=== PATIENT | male | born 1965 | race African-American/Black ===

== ENCOUNTER 2022-01-13 19:35 | Inpatient (IN) | payer SELFPAY ==
[2022-01-13] MEDS ORDERED: SODIUM CHLORIDE 0.9% 500 ML INFUS.BAG IV ONE ×2 (20:40→22:19)
[2022-01-13] MEDS ORDERED: ONDANSETRON 4 MG/2 ML VIAL ONE (20:45)
[2022-01-13] MEDS ORDERED: ACETAMINOPHEN 1000 MG/100 ML BAG IVPB ONE (20:46)
[2022-01-13] MEDS ORDERED: ONDANSETRON 4 MG/2 ML VIAL IVPUSH ONE (21:03)
[2022-01-13 21:43] LABS: HEMATOCRIT 27.6 % (35.4-49); HEMOGLOBIN 8.6 GM/dL (11.7-16.9); MCH 26.3 pg (25.7-33.7); MCHC 31.2 g/dl (32.0-35.9); MEAN CELL VOLUME 84.1 fl (80-96); MEAN PLT VOLUME 7.5 fl (7.5-11.1); PLATELET COUNT 493 10^3/uL (134-434); RBC 3.28 M/mm3 (4.00-5.60); RDW 19.4 % (11.9-15.9); VENOUS BASE EXCESS -11.4 mmol/L (-2-2); VENOUS O2 SATURATION 15.8 % (70-80); VENOUS PCO2 43.7 mmHg (38-52); WHITE BLOOD COUNT 20.6 K/mm3 (4.0-10.0)
[2022-01-13 21:44] LABS: VENOUS PH 7.19 (7.310-7.410)
[2022-01-13 21:50] LABS: INR 1.18 (0.83-1.09); PROTHROMBIN TIME (PATIENT) 13.6 SEC (9.7-13.0)
[2022-01-13 21:53] LABS: ACTIVATED PTT 26.3 SECONDS (25.2-36.5)
[2022-01-13 22:03] LABS: ALBUMIN 2.2 g/dl (3.4-5.0); BLOOD UREA NITROGEN 35.2 mg/dL (7-18); CALCIUM 9.5 mg/dL (8.5-10.1); MAGNESIUM 2.4 mg/dL (1.8-2.4)
[2022-01-13 22:06] LABS: CREATININE 3.3 mg/dL (0.55-1.3); PHOSPHOROUS 4.5 mg/dL (2.5-4.9)
[2022-01-13 22:09] LABS: TOT PROT 9.4 g/dl (6.4-8.2)
[2022-01-13 22:19] LABS: BILIRUBIN,TOTAL 0.2 mg/dL (0.2-1)
[2022-01-13 22:36] LABS: ANISOCYTOSIS 1+; MACROCYTOSIS 1+; PLATELET ESTIMATE INCREASED
[2022-01-14] MEDS ORDERED: PIPERACILLIN/TAZOB 4.5 GM 4.5 GM in DEXTROSE 5%-WATER 100 ML IVPB ONE (00:42)
[2022-01-14] MEDS ORDERED: VANCOMYCIN 1 GM in D5W (PRE-DOCKED) 1,000 MG/250 ML IVPB ONE (00:43)
[2022-01-14] MEDS ORDERED: PIPERACILLIN/TAZOB 4.5 GM 4.5 GM/100 ML BAG IVPB ONE (01:47)
[2022-01-14] MEDS ORDERED: VANCOMYCIN/WATER FOR INJ (PEG) 1,000 MG/200 ML BAG IVPB ONE (01:48)
[2022-01-14] MEDS: VANCOMYCIN 250 MG/5 ML ORAL SOLUTION PO SCH ×3 (06:42→18:46)
[2022-01-14] MEDS: HEPARIN NA (PORCINE) 5,000 UNITS/ML 1ML VIAL SQ SCH ×3 (06:42→21:35)
[2022-01-14] MEDS: SODIUM CHLORIDE 1,000 ML IV SCH (06:42)
[2022-01-14] MEDS ORDERED: SODIUM CHLORIDE 1,000 ML IV STA (08:47)
[2022-01-14] MEDS: PIPERACILLIN/TAZOB 2.25 GM 2.25 GM in DEXTROSE 5%-WATER - 50 ML IVPB SCH ×3 (10:15→21:35)
[2022-01-14 12:09] LABS: HEMATOCRIT 23.6 % (35.4-49); HEMOGLOBIN 7.5 GM/dL (11.7-16.9); MCH 26.5 pg (25.7-33.7); MCHC 31.7 g/dl (32.0-35.9); MEAN CELL VOLUME 83.7 fl (80-96); MEAN PLT VOLUME 7.5 fl (7.5-11.1); PLATELET COUNT 419 10^3/uL (134-434); RBC 2.82 M/mm3 (4.00-5.60); RDW 19.2 % (11.9-15.9); WHITE BLOOD COUNT 20.4 K/mm3 (4.0-10.0)
[2022-01-14 12:49] LABS: ALBUMIN 1.8 g/dl (3.4-5.0); CALCIUM 8.4 mg/dL (8.5-10.1); MAGNESIUM 2.2 mg/dL (1.8-2.4)
[2022-01-14 12:51] LABS: BLOOD UREA NITROGEN 33.2 mg/dL (7-18)
[2022-01-14 12:52] LABS: CREATININE 3.3 mg/dL (0.55-1.3); PHOSPHOROUS 4.3 mg/dL (2.5-4.9)
[2022-01-14 12:54] LABS: BILIRUBIN,TOTAL 0.4 mg/dL (0.2-1); TOT PROT 7.5 g/dl (6.4-8.2)
[2022-01-14 13:29] LABS: ANISOCYTOSIS 0; MACROCYTOSIS 0
[2022-01-14 17:12] LABS: BLOOD UREA NITROGEN 35.2 mg/dL (7-18); CALCIUM 8.3 mg/dL (8.5-10.1)
[2022-01-14 17:15] LABS: CREATININE 3.4 mg/dL (0.55-1.3)
[2022-01-14 19:47] LABS: BLOOD UREA NITROGEN 36.2 mg/dL (7-18); CALCIUM 8.1 mg/dL (8.5-10.1)
[2022-01-14 19:51] LABS: CREATININE 3.5 mg/dL (0.55-1.3)
[2022-01-15] MEDS: PIPERACILLIN/TAZOB 2.25 GM 2.25 GM in DEXTROSE 5%-WATER - 50 ML IVPB SCH ×3 (02:45→19:20)
[2022-01-15] MEDS: VANCOMYCIN 250 MG/5 ML ORAL SOLUTION PO SCH ×2 (03:22→06:09)
[2022-01-15] MEDS ORDERED: VANCOMYCIN 1,000 MG in DEXTROSE 5%-WATER - 250 ML IVPB SCH (06:00)
[2022-01-15] MEDS: HEPARIN NA (PORCINE) 5,000 UNITS/ML 1ML VIAL SQ SCH ×3 (06:08→21:26)
[2022-01-15] MEDS: SODIUM CHLORIDE 1,000 ML IV SCH (06:08)
[2022-01-15 07:58] LABS: BASO % 0.3 % (0-2.0); EOS % 0.4 % (0-4.5); HEMATOCRIT 22.7 % (35.4-49); HEMOGLOBIN 7.2 GM/dL (11.7-16.9); LYMPH % 5.9 % (8-40); MCH 26.4 pg (25.7-33.7); MCHC 31.6 g/dl (32.0-35.9); MEAN CELL VOLUME 83.6 fl (80-96); MEAN PLT VOLUME 7.5 fl (7.5-11.1); MONO % 4.7 % (3.8-10.2); NEUT % 88.7 % (42.8-82.8); PLATELET COUNT 433 10^3/uL (134-434); RBC 2.71 M/mm3 (4.00-5.60); RDW 18.6 % (11.9-15.9); WHITE BLOOD COUNT 19.1 K/mm3 (4.0-10.0)
[2022-01-15 08:25] LABS: CALCIUM 8.2 mg/dL (8.5-10.1)
[2022-01-15 08:26] LABS: ALBUMIN 1.5 g/dl (3.4-5.0); BLOOD UREA NITROGEN 37.8 mg/dL (7-18); MAGNESIUM 2.1 mg/dL (1.8-2.4)
[2022-01-15 08:29] LABS: CREATININE 3.4 mg/dL (0.55-1.3); PHOSPHOROUS 3.7 mg/dL (2.5-4.9)
[2022-01-15 08:31] LABS: BILIRUBIN,TOTAL 0.6 mg/dL (0.2-1); TOT PROT 6.8 g/dl (6.4-8.2)
[2022-01-15] MEDS ORDERED: VANCOMYCIN 1 GM in D5W (PRE-DOCKED) 1,000 MG/250 ML IVPB SCH (10:00)
[2022-01-15] MEDS ORDERED: PIPERACILLIN/TAZOB 3.375 GM 3.375 GM in DEXTROSE 5%-WATER - 50 ML IVPB SCH (18:00)
[2022-01-15 22:12] LABS: EPI CELLS 24 /uL (0-25.1); HYALINE CASTS 10 /uL (0-3.1); PH,URINE 5.5 (5.0-8.0); URINE APPEARANCE CLOUDY; URINE BACTERIA 23 /uL (0-1359); URINE BILIRUBIN NEGATIVE (NEGATIVE); URINE COLOR YELLOW; URINE GLUCOSE (UA) NEGATIVE (NEGATIVE); URINE KETONE NEGATIVE (NEGATIVE); URINE LEUK ESTERASE NEGATIVE (NEGATIVE); URINE NITRITE NEGATIVE (NEGATIVE); URINE PROTEIN 1+ (NEGATIVE); URINE RBC 17 /uL (0-23.9); URINE UROBILINOGEN 0.2 mg/dL (0.2-1.0); URINE WBC 32 /uL (0-25.8)
[2022-01-15 22:30] LABS: YEAST PRESENT (NEGATIVE)
[2022-01-16] MEDS: PIPERACILLIN/TAZOB 2.25 GM 2.25 GM in DEXTROSE 5%-WATER - 50 ML IVPB SCH ×4 (01:04→17:58)
[2022-01-16] MEDS: HEPARIN NA (PORCINE) 5,000 UNITS/ML 1ML VIAL SQ SCH ×3 (05:15→21:56)
[2022-01-16] MEDS: SODIUM CHLORIDE 1,000 ML IV SCH (05:27)
[2022-01-16 08:56] LABS: CALCIUM 8.5 mg/dL (8.5-10.1)
[2022-01-16 08:57] LABS: ALBUMIN 1.5 g/dl (3.4-5.0); BLOOD UREA NITROGEN 37.6 mg/dL (7-18)
[2022-01-16 09:03] LABS: BILIRUBIN,TOTAL 0.2 mg/dL (0.2-1)
[2022-01-16] MEDS: MULTIVIT-MINERALS ORAL LIQUID PO SCH (09:30)
[2022-01-16 11:50] LABS: HIV INTERPRETATION NEGATIVE (NEGATIVE)
[2022-01-16 13:32] LABS: HEMATOCRIT 24.2 % (35.4-49); HEMOGLOBIN 7.6 GM/dL (11.7-16.9); MCH 26.4 pg (25.7-33.7); MCHC 31.5 g/dl (32.0-35.9); MEAN CELL VOLUME 83.9 fl (80-96); MEAN PLT VOLUME 7.3 fl (7.5-11.1); PLATELET COUNT 482 10^3/uL (134-434); RBC 2.89 M/mm3 (4.00-5.60); RDW 19.4 % (11.9-15.9); WHITE BLOOD COUNT 20.1 K/mm3 (4.0-10.0)
[2022-01-16 13:54] LABS: CALCIUM 8.5 mg/dL (8.5-10.1)
[2022-01-16 13:55] LABS: ALBUMIN 1.5 g/dl (3.4-5.0); BLOOD UREA NITROGEN 39.8 mg/dL (7-18)
[2022-01-16 13:58] LABS: CREATININE 2.8 mg/dL (0.55-1.3)
[2022-01-16 13:59] LABS: TOT PROT 7.2 g/dl (6.4-8.2)
[2022-01-16 14:00] LABS: BILIRUBIN,TOTAL 0.3 mg/dL (0.2-1)
[2022-01-16 14:16] LABS: ANISOCYTOSIS 1+; MACROCYTOSIS 1+; TEAR DROP CELLS 1+; TOXIC GRANULATION 2+
[2022-01-16] MEDS ORDERED: SODIUM BICARBONATE 8.4% 50 MEQ/50 ML DISP.SYRIN IVPUSH ONE (17:22)
[2022-01-16] MEDS: SODIUM BICARBONATE 650 MG TABLET PO SCH ×2 (17:58→21:52)
[2022-01-17] MEDS ORDERED: PIPERACILLIN/TAZOBACTAM 2.25 GM VIAL IVPB ONE (00:22)
[2022-01-17] MEDS: PIPERACILLIN/TAZOB 2.25 GM 2.25 GM in DEXTROSE 5%-WATER - 50 ML IVPB SCH ×3 (01:10→17:56)
[2022-01-17] MEDS: SODIUM CHLORIDE 1,000 ML IV SCH (06:37)
[2022-01-17] MEDS: SODIUM BICARBONATE 650 MG TABLET PO SCH ×3 (06:38→21:46)
[2022-01-17] MEDS: HEPARIN NA (PORCINE) 5,000 UNITS/ML 1ML VIAL SQ SCH ×2 (06:38→14:45)
[2022-01-17] MEDS: MULTIVIT-MINERALS ORAL LIQUID PO SCH (09:52)
[2022-01-17] MEDS: LACTATED RINGERS SOLUTION 1,000 ML/1,000 ML INFUS.BAG IV SCH (10:50)
[2022-01-18] MEDS: HEPARIN NA (PORCINE) 5,000 UNITS/ML 1ML VIAL SQ SCH ×4 (01:15→21:03)
[2022-01-18] MEDS: PIPERACILLIN/TAZOB 2.25 GM 2.25 GM in DEXTROSE 5%-WATER - 50 ML IVPB SCH ×3 (03:25→18:00)
[2022-01-18] MEDS: SODIUM BICARBONATE 650 MG TABLET PO SCH ×3 (05:36→21:02)
[2022-01-18 06:57] LABS: VENOUS BASE EXCESS -9.8 mmol/L (-2-2); VENOUS O2 SATURATION 91.9 % (70-80); VENOUS PCO2 29.9 mmHg (38-52); VENOUS PH 7.323 (7.310-7.410)
[2022-01-18 07:03] LABS: BASO % 0.4 % (0-2.0); EOS % 0.3 % (0-4.5); HEMOGLOBIN 7.2 GM/dL (11.7-16.9); LYMPH % 6.8 % (8-40); MCH 26.9 pg (25.7-33.7); MCHC 32.9 g/dl (32.0-35.9); MEAN CELL VOLUME 81.7 fl (80-96); MEAN PLT VOLUME 6.7 fl (7.5-11.1); MONO % 5.2 % (3.8-10.2); NEUT % 87.3 % (42.8-82.8); PLATELET COUNT 490 10^3/uL (134-434); RBC 2.69 M/mm3 (4.00-5.60); RDW 18.7 % (11.9-15.9); WHITE BLOOD COUNT 17.4 K/mm3 (4.0-10.0)
[2022-01-18 07:26] LABS: CALCIUM 7.9 mg/dL (8.5-10.1); MAGNESIUM 1.3 mg/dL (1.8-2.4)
[2022-01-18 07:29] LABS: CREATININE 1.6 mg/dL (0.55-1.3); PHOSPHOROUS 4.8 mg/dL (2.5-4.9)
[2022-01-18] MEDS ORDERED: MAGNESIUM SULF 50% (8.12 MEQ/2 ML-1 GM VIAL) IVPB ONE (09:10)
[2022-01-18] MEDS: MULTIVIT-MINERALS ORAL LIQUID PO SCH (11:40)
[2022-01-18] MEDS: LACTATED RINGERS SOLUTION 1,000 ML/1,000 ML INFUS.BAG IV SCH (11:41)
[2022-01-19] MEDS: PIPERACILLIN/TAZOB 2.25 GM 2.25 GM in DEXTROSE 5%-WATER - 50 ML IVPB SCH ×2 (02:29→10:34)
[2022-01-19] MEDS: HEPARIN NA (PORCINE) 5,000 UNITS/ML 1ML VIAL SQ SCH ×3 (05:36→21:03)
[2022-01-19] MEDS: SODIUM BICARBONATE 650 MG TABLET PO SCH ×3 (05:36→21:02)
[2022-01-19] MEDS: LACTATED RINGERS SOLUTION 1,000 ML/1,000 ML INFUS.BAG IV SCH ×2 (06:07→10:30)
[2022-01-19 07:39] LABS: BASO % 0.3 % (0-2.0); EOS % 0.5 % (0-4.5); HEMATOCRIT 21.7 % (35.4-49); HEMOGLOBIN 7.1 GM/dL (11.7-16.9); LYMPH % 7.3 % (8-40); MCH 26.7 pg (25.7-33.7); MCHC 32.8 g/dl (32.0-35.9); MEAN CELL VOLUME 81.4 fl (80-96); MEAN PLT VOLUME 6.8 fl (7.5-11.1); NEUT % 86.9 % (42.8-82.8); PLATELET COUNT 480 10^3/uL (134-434); RBC 2.67 M/mm3 (4.00-5.60); RDW 19.3 % (11.9-15.9); WHITE BLOOD COUNT 17.4 K/mm3 (4.0-10.0)
[2022-01-19 08:22] LABS: ALBUMIN 1.4 g/dl (3.4-5.0); CALCIUM 7.9 mg/dL (8.5-10.1)
[2022-01-19 08:23] LABS: MAGNESIUM 1.7 mg/dL (1.8-2.4)
[2022-01-19 08:25] LABS: CREATININE 1.3 mg/dL (0.55-1.3); PHOSPHOROUS 4.2 mg/dL (2.5-4.9)
[2022-01-19 08:26] LABS: BILIRUBIN,TOTAL 0.3 mg/dL (0.2-1); TOT PROT 6.5 g/dl (6.4-8.2)
[2022-01-19] MEDS ORDERED: POTASSIUM CHLORIDE TABS 20 MEQ TABLET.ER (FP) PO ONE (10:15)
[2022-01-19] MEDS: MULTIVIT-MINERALS ORAL LIQUID PO SCH (10:33)
[2022-01-19] MEDS ORDERED: MAGNESIUM SULF 50% (8.12 MEQ/2 ML-1 GM VIAL) IVPB ONE (10:37)
[2022-01-19 14:18] VITALS: BMI 19.0
[2022-01-20] MEDS: PIPERACILLIN/TAZOB 2.25 GM 2.25 GM in DEXTROSE 5%-WATER - 50 ML IVPB SCH ×4 (01:47→20:13)
[2022-01-20] MEDS: SODIUM BICARBONATE 650 MG TABLET PO SCH ×2 (05:09→21:06)
[2022-01-20] MEDS: LACTATED RINGERS SOLUTION 1,000 ML/1,000 ML INFUS.BAG IV SCH ×3 (05:10→18:02)
[2022-01-20] MEDS: HEPARIN NA (PORCINE) 5,000 UNITS/ML 1ML VIAL SQ SCH ×4 (05:12→21:29)
[2022-01-20 08:17] LABS: BASO % 0.3 % (0-2.0); EOS % 0.5 % (0-4.5); HEMATOCRIT 23.7 % (35.4-49); HEMOGLOBIN 7.4 GM/dL (11.7-16.9); LYMPH % 7.7 % (8-40); MCH 25.9 pg (25.7-33.7); MCHC 31.5 g/dl (32.0-35.9); MEAN CELL VOLUME 82.2 fl (80-96); MEAN PLT VOLUME 7.2 fl (7.5-11.1); MONO % 4.2 % (3.8-10.2); NEUT % 87.3 % (42.8-82.8); PLATELET COUNT 498 10^3/uL (134-434); RBC 2.88 M/mm3 (4.00-5.60); WHITE BLOOD COUNT 19.7 K/mm3 (4.0-10.0)
[2022-01-20 08:34] LABS: CALCIUM 7.4 mg/dL (8.5-10.1); MAGNESIUM 1.4 mg/dL (1.8-2.4)
[2022-01-20 08:36] LABS: CREATININE 1.2 mg/dL (0.55-1.3); PHOSPHOROUS 3.4 mg/dL (2.5-4.9)
[2022-01-20] MEDS: MULTIVIT-MINERALS ORAL LIQUID PO SCH (09:35)
[2022-01-20] MEDS ORDERED: MAGNESIUM 2GM/50ML STERILE WATER IVPB IVPB ONE (13:27)
[2022-01-21] MEDS: PIPERACILLIN/TAZOB 2.25 GM 2.25 GM in DEXTROSE 5%-WATER - 50 ML IVPB SCH ×3 (02:07→17:57)
[2022-01-21] MEDS: HEPARIN NA (PORCINE) 5,000 UNITS/ML 1ML VIAL SQ SCH ×3 (06:40→21:31)
[2022-01-21 06:50] LABS: BASO % 0.3 % (0-2.0); EOS % 0.6 % (0-4.5); HEMATOCRIT 22.9 % (35.4-49); HEMOGLOBIN 7.3 GM/dL (11.7-16.9); LYMPH % 8.6 % (8-40); MCH 26.1 pg (25.7-33.7); MCHC 31.9 g/dl (32.0-35.9); MEAN CELL VOLUME 81.9 fl (80-96); MONO % 4.9 % (3.8-10.2); NEUT % 85.6 % (42.8-82.8); PLATELET COUNT 483 10^3/uL (134-434); RDW 19.3 % (11.9-15.9)
[2022-01-21 07:13] LABS: ALBUMIN 1.4 g/dl (3.4-5.0); CALCIUM 7.6 mg/dL (8.5-10.1); MAGNESIUM 1.7 mg/dL (1.8-2.4)
[2022-01-21 07:18] LABS: BILIRUBIN,TOTAL 0.3 mg/dL (0.2-1); TOT PROT 6.7 g/dl (6.4-8.2)
[2022-01-21] MEDS ORDERED: MAGNESIUM SULF 50% (8.12 MEQ/2 ML-1 GM VIAL) IVPB ONE (09:30)
[2022-01-21] MEDS: SODIUM BICARBONATE 650 MG TABLET PO SCH ×2 (10:31→21:28)
[2022-01-21] MEDS: MULTIVIT-MINERALS ORAL LIQUID PO SCH (10:34)
[2022-01-21] MEDS ORDERED: MAGNESIUM 2GM/50ML STERILE WATER IVPB IVPB ONE (13:00)
[2022-01-21] MEDS: LACTATED RINGERS SOLUTION 1,000 ML/1,000 ML INFUS.BAG IV SCH (16:42)
[2022-01-22] MEDS: PIPERACILLIN/TAZOB 2.25 GM 2.25 GM in DEXTROSE 5%-WATER - 50 ML IVPB SCH ×3 (01:21→18:02)
[2022-01-22] MEDS: HEPARIN NA (PORCINE) 5,000 UNITS/ML 1ML VIAL SQ SCH ×3 (06:12→22:05)
[2022-01-22 06:58] LABS: BASO % 0.1 % (0-2.0); HEMOGLOBIN 7.1 GM/dL (11.7-16.9); LYMPH % 8.1 % (8-40); MCH 26.3 pg (25.7-33.7); MCHC 32.3 g/dl (32.0-35.9); MEAN CELL VOLUME 81.4 fl (80-96); NEUT % 86.8 % (42.8-82.8); PLATELET COUNT 468 10^3/uL (134-434); RDW 19.3 % (11.9-15.9); WHITE BLOOD COUNT 13.4 K/mm3 (4.0-10.0)
[2022-01-22 07:21] LABS: CALCIUM 7.8 mg/dL (8.5-10.1)
[2022-01-22 07:22] LABS: ALBUMIN 1.3 g/dl (3.4-5.0); BLOOD UREA NITROGEN 10.6 mg/dL (7-18); MAGNESIUM 1.8 mg/dL (1.8-2.4)
[2022-01-22 07:25] LABS: CREATININE 0.9 mg/dL (0.55-1.3); PHOSPHOROUS 3.2 mg/dL (2.5-4.9)
[2022-01-22 07:26] LABS: BILIRUBIN,TOTAL 0.2 mg/dL (0.2-1); TOT PROT 6.3 g/dl (6.4-8.2)
[2022-01-22] MEDS: SODIUM BICARBONATE 650 MG TABLET PO SCH (09:06)
[2022-01-22] MEDS: MULTIVIT-MINERALS ORAL LIQUID PO SCH (09:08)
[2022-01-22] MEDS ORDERED: SODIUM BICARBONATE 650 MG TABLET PO SCH (10:00)
[2022-01-22] MEDS ORDERED: MAGNESIUM 1GM/D5W 100ML - 100 ML IVPB IVPB ONE (16:19)
[2022-01-22] MEDS: LACTATED RINGERS SOLUTION 1,000 ML/1,000 ML INFUS.BAG IV SCH (17:00)
[2022-01-23] MEDS: PIPERACILLIN/TAZOB 2.25 GM 2.25 GM in DEXTROSE 5%-WATER - 50 ML IVPB SCH ×3 (01:28→18:03)
[2022-01-23] MEDS: HEPARIN NA (PORCINE) 5,000 UNITS/ML 1ML VIAL SQ SCH ×4 (05:52→21:16)
[2022-01-23 07:14] LABS: BASO % 0.4 % (0-2.0); EOS % 0.9 % (0-4.5); HEMATOCRIT 23.1 % (35.4-49); HEMOGLOBIN 7.5 GM/dL (11.7-16.9); MCH 26.7 pg (25.7-33.7); MCHC 32.6 g/dl (32.0-35.9); MEAN CELL VOLUME 82.1 fl (80-96); MEAN PLT VOLUME 7.2 fl (7.5-11.1); MONO % 3.8 % (3.8-10.2); NEUT % 84.9 % (42.8-82.8); PLATELET COUNT 445 10^3/uL (134-434); RBC 2.82 M/mm3 (4.00-5.60); RDW 19.5 % (11.9-15.9); WHITE BLOOD COUNT 12.3 K/mm3 (4.0-10.0)
[2022-01-23 07:27] LABS: CALCIUM 7.6 mg/dL (8.5-10.1)
[2022-01-23 07:28] LABS: ALBUMIN 1.4 g/dl (3.4-5.0); BLOOD UREA NITROGEN 7.5 mg/dL (7-18); MAGNESIUM 1.6 mg/dL (1.8-2.4)
[2022-01-23 07:31] LABS: CREATININE 0.9 mg/dL (0.55-1.3); PHOSPHOROUS 3.2 mg/dL (2.5-4.9)
[2022-01-23 07:33] LABS: BILIRUBIN,TOTAL 0.2 mg/dL (0.2-1); TOT PROT 6.6 g/dl (6.4-8.2)
[2022-01-23] MEDS ORDERED: SODIUM BICARBONATE 650 MG TABLET PO SCH (10:00)
[2022-01-23] MEDS: MULTIVIT-MINERALS ORAL LIQUID PO SCH (10:53)
[2022-01-23] MEDS: LACTATED RINGERS SOLUTION 1,000 ML/1,000 ML INFUS.BAG IV SCH (13:31)
[2022-01-23] MEDS: DRONABINOL 2.5 MG CAPSULE PO SCH ×2 (14:30→21:16)
[2022-01-23] MEDS: SODIUM BICARBONATE 650 MG TABLET PO SCH (21:16)
[2022-01-24] MEDS: PIPERACILLIN/TAZOB 2.25 GM 2.25 GM in DEXTROSE 5%-WATER - 50 ML IVPB SCH ×3 (01:17→17:36)
[2022-01-24] MEDS: HEPARIN NA (PORCINE) 5,000 UNITS/ML 1ML VIAL SQ SCH ×3 (05:32→21:11)
[2022-01-24] MEDS: LACTATED RINGERS SOLUTION 1,000 ML/1,000 ML INFUS.BAG IV SCH ×3 (05:51→17:36)
[2022-01-24] MEDS: MULTIVIT-MINERALS ORAL LIQUID PO SCH (10:58)
[2022-01-24] MEDS: SODIUM BICARBONATE 650 MG TABLET PO SCH ×2 (10:58→21:10)
[2022-01-24] MEDS: DRONABINOL 2.5 MG CAPSULE PO SCH ×2 (10:58→21:10)
[2022-01-24 12:48] LABS: BASO % 0.6 % (0-2.0); EOS % 1.1 % (0-4.5); HEMATOCRIT 23.6 % (35.4-49); HEMOGLOBIN 7.4 GM/dL (11.7-16.9); LYMPH % 11.2 % (8-40); MCHC 31.2 g/dl (32.0-35.9); MEAN CELL VOLUME 83.3 fl (80-96); MEAN PLT VOLUME 7.2 fl (7.5-11.1); MONO % 4.1 % (3.8-10.2); PLATELET COUNT 429 10^3/uL (134-434); RBC 2.83 M/mm3 (4.00-5.60); RDW 19.8 % (11.9-15.9); WHITE BLOOD COUNT 11.1 K/mm3 (4.0-10.0)
[2022-01-24 13:00] LABS: CHLORIDE 114 mmol/L (98-107); SODIUM 142 mmol/L (136-145)
[2022-01-24 13:02] LABS: ANION GAP 6 MMOL/L (8-16); BLOOD UREA NITROGEN 10.2 mg/dL (7-18); CALCIUM 7.8 mg/dL (8.5-10.1); CO2 22 mmol/L (21-32); GLUCOSE,RANDOM 97 mg/dL (74-106); MAGNESIUM 1.5 mg/dL (1.8-2.4)
[2022-01-24 13:03] LABS: ALBUMIN 1.3 g/dl (3.4-5.0)
[2022-01-24 13:05] LABS: SGPT/ALT < 6 U/L (13-61)
[2022-01-24 13:06] LABS: CREATININE 0.9 mg/dL (0.55-1.3); PHOSPHOROUS 2.9 mg/dL (2.5-4.9); SGOT/AST 14 U/L (15-37)
[2022-01-24 13:07] LABS: BILIRUBIN,TOTAL 0.1 mg/dL (0.2-1); TOT PROT 6.3 g/dl (6.4-8.2)
[2022-01-24 13:08] LABS: ALK PHOS 96 U/L (45-117)
[2022-01-25] MEDS: LACTATED RINGERS SOLUTION 1,000 ML/1,000 ML INFUS.BAG IV SCH (01:21)
[2022-01-25] MEDS: PIPERACILLIN/TAZOB 2.25 GM 2.25 GM in DEXTROSE 5%-WATER - 50 ML IVPB SCH ×2 (02:18→10:52)
[2022-01-25 06:46] VITALS: PULSE 81; RESP 20
[2022-01-25] MEDS: HEPARIN NA (PORCINE) 5,000 UNITS/ML 1ML VIAL SQ SCH (06:48)
[2022-01-25 06:51] LABS: BASO % 0.4 % (0-2.0); EOS % 1.5 % (0-4.5); HEMATOCRIT 23.7 % (35.4-49); HEMOGLOBIN 7.6 GM/dL (11.7-16.9); LYMPH % 17.4 % (8-40); MCH 26.9 pg (25.7-33.7); MCHC 32.1 g/dl (32.0-35.9); MEAN CELL VOLUME 83.7 fl (80-96); MEAN PLT VOLUME 7.4 fl (7.5-11.1); MONO % 4.3 % (3.8-10.2); NEUT % 76.4 % (42.8-82.8); PLATELET COUNT 456 10^3/uL (134-434); RBC 2.83 M/mm3 (4.00-5.60); RDW 20.2 % (11.9-15.9); WHITE BLOOD COUNT 9.8 K/mm3 (4.0-10.0)
[2022-01-25 07:17] LABS: SODIUM 142 mmol/L (136-145)
[2022-01-25 07:21] LABS: CALCIUM 7.2 mg/dL (8.5-10.1)
[2022-01-25 07:22] LABS: ALBUMIN 1.3 g/dl (3.4-5.0); BLOOD UREA NITROGEN 12.6 mg/dL (7-18); CO2 20 mmol/L (21-32); GLUCOSE,RANDOM 165 mg/dL (74-106); MAGNESIUM 1.5 mg/dL (1.8-2.4)
[2022-01-25 07:25] LABS: CREATININE 0.8 mg/dL (0.55-1.3); PHOSPHOROUS 2.6 mg/dL (2.5-4.9); SGOT/AST 16 U/L (15-37); SGPT/ALT < 6 U/L (13-61)
[2022-01-25 07:26] LABS: TOT PROT 6.2 g/dl (6.4-8.2)
[2022-01-25 07:27] LABS: BILIRUBIN,TOTAL 0.1 mg/dL (0.2-1)
[2022-01-25 07:28] LABS: ALK PHOS 119 U/L (45-117)
[2022-01-25 07:34] LABS: ANION GAP 7 MMOL/L (8-16); CHLORIDE 116 mmol/L (98-107)
[2022-01-25] MEDS: SODIUM BICARBONATE 650 MG TABLET PO SCH (10:52)
[2022-01-25] MEDS: DRONABINOL 2.5 MG CAPSULE PO SCH (10:52)
[2022-01-25] MEDS: MULTIVIT-MINERALS ORAL LIQUID PO SCH (10:53)
[2022-01-25 14:38] VITALS: BP 120/69; TEMP 98.6
== END 2022-01-25 16:55 | disposition short-term general hospital (02) | DRG 720 ==
LOC: JER 19:35 → JERBED 21:01 → J5S 01-14 08:46 → J2W 01-14 11:19
PROVIDERS: ADMIT Internal Medicine; ATTEND Internal Medicine
DX: A41.9 Sepsis, unspecified organism (principal); C18.9 Malignant neoplasm of colon, unspecified; C78.7 Secondary malignant neoplasm of liver and intrahepatic bile duct; N17.9 Acute kidney failure, unspecified; I24.8 Other forms of acute ischemic heart disease; E87.1 Hypo-osmolality and hyponatremia; D63.8 Anemia in other chronic diseases classified elsewhere; R64 Cachexia; Z68.1 Body mass index [BMI] 19.9 or less, adult; Z86.718 Personal history of other venous thrombosis and embolism; N18.9 Chronic kidney disease, unspecified; R19.7 Diarrhea, unspecified; E87.2 Acidosis; A04.72 Enterocolitis due to Clostridium difficile, not specified as recurrent; K65.1 Peritoneal abscess
CPT/HCPCS: 0241U-QW; 36415; 71045-TC-FY; 71250-TC; 74176-TC; 74177-TC; 76775-TC; 80048; 80053; 81003; 82436; 82550; 82570; 82803; 83605; 83690; 83735; 84100; 84133; 84300; 84443; 84484; 85025; 85610; 85730; 86850; 86900; 86901; 87040; 87324; 87389; 87449; 93005; 93010; 99285-25; C9803-CS; J1644; Q9967; U0003; U0005